=== PATIENT | female | born 1975 | race Caucasian/White ===

== ENCOUNTER 2017-05-16 20:54 | Emergency (ER) | payer OTHER ==
[2017-05-16 20:55] VITALS: BP 161/96; PULSE 108; RESP 16; TEMP 99.3; O2SAT 100
[2017-05-16 22:07] LABS: AUTOMATED NEUTROPHIL # 3.8 TH/MM3 (1.8-7.7); BASOPHIL # 0.1 TH/MM3 (0-0.2); BASOPHIL % 1.5 % (0.0-2.0); EOSINOPHIL # 0.2 TH/MM3 (0-0.4); EOSINOPHIL % 3.6 % (0.0-4.0); HEMO FLAGS DIFF FINAL; LYMPH % 23.5 % (9.0-44.0); LYMPHOCYTE # 1.4 TH/MM3 (1.0-4.8); MEAN CELL VOLUME 100.7 FL (80.0-100.0); MEAN CORPUSCULAR HEMOGLOBIN 35.4 PG (27.0-34.0); MEAN CORPUSCULAR HGB CONC 35.1 % (32.0-36.0); MONO % 7.4 % (0.0-8.0); PLATELET COUNT 254 TH/MM3 (150-450); RED BLOOD COUNT 3.57 MIL/MM3 (4.00-5.30); RED CELL DISTRIBUTION WIDTH 13.8 % (11.6-17.2)
[2017-05-16 22:33] LABS: ALT (GPT) 11 U/L (10-53); ANION GAP 4 MEQ/L (5-15); AST (GOT) 10 U/L (15-37); BICARBONATE 29.1 MEQ/L (21.0-32.0); BLOOD UREA NITROGEN 10 MG/DL (7-18); CHLORIDE 106 MEQ/L (98-107); GLOMERULAR FILTRATION RATE 85 ML/MIN (>89); POTASSIUM 4.3 MEQ/L (3.5-5.1); SODIUM (NA) 139 MEQ/L (136-145)
[2017-05-16 22:43] LABS: ALKALINE PHOSPHATASE 57 U/L (45-117); FREE T4 0.85 NG/DL (0.76-1.46); TOTAL BILIRUBIN ADULT 0.4 MG/DL (0.2-1.0)
[2017-05-16 22:45] LABS: CREATINE KINASE 89 U/L (26-192)
[2017-05-16] MEDS ORDERED: GABA300C5 PO (22:52)
[2017-05-16] MEDS ORDERED: ESZO2 PO (22:52)
[2017-05-16] MEDS ORDERED: SYNT25TA PO (22:52)
[2017-05-16 22:57] VITALS: BP 137/66; PULSE 89; RESP 16; O2SAT 100
--- NOTE | 2017-05-16 23:11 | PD ---
HPI Chief Complaint: Numbness/Tingling Time Seen by Provider: 23:07 Travel History International Travel<30 days: No Contact w/Intl Traveler<30days: No Traveled to known affect area: No History of Present Illness HPI patient diagnosed with hypothyroid and insomnia, recently moved here and has not found a pcp, so has NOT had her medications adjusted. now compliaints of fatigue, gen weakness but unable to sleep well. has noted hair falling out and brittle nails that crack easily. PFSH Past Medical History Anxiety: Yes Depression: Yes Diabetes: No Patient Takes Glucophage: No Diminished Hearing: No Endocrine: Yes (HYPO) Insomnia: Yes Immunizations Current: Yes Migraines: Yes Tetanus Vaccination: > 5 Years Influenza Vaccination: No ?: Not LMP: 05/09/17 : 2 Para: 1 Miscarriage: 1 Past Surgical History Surgical History: No Previous Surgery Social History Alcohol Use: No Tobacco Use: Yes (4 cigs a day) Substance Use: No Allergies-Medications (Allergen,Severity, Reaction): Coded Allergies: No Known Allergies (Unverified , 05/16/17) Reported Meds & Prescriptions Reported Meds & Active Scripts Active Ambien (Zolpidem Tartrate) 10 Mg Tab 10 Mg PO HS PRN Reported Lunesta (Eszopiclone) 2 Mg Tab 2 Mg PO HS PRN Gabapentin 300 Mg Cap 300 Mg PO TID Synthroid (Levothyroxine Sodium) 25 Mcg Tab 25 Mcg PO DAILY Review of Systems Except as stated in HPI: all other systems reviewed are Neg General / Constitutional: No: Fever Eyes: No: Visual changes HENT: No: Headaches Cardiovascular: No: Chest Pain or Discomfort Respiratory: No: Shortness of Breath Gastrointestinal: No: Abdominal Pain Genitourinary: No: Dysuria Musculoskeletal: No: Pain Skin: No Rash Neurologic: Positive: Weakness Psychiatric: No: Depression Endocrine: Positive: Cold Intolerance Hematologic/Lymphatic: No: Easy Bruising Physical Exam Narrative GENERAL: SKIN: Warm and dry. HEAD: Atraumatic. Normocephalic. EYES: Pupils equal and round. No scleral icterus. No injection or drainage. ENT: No nasal bleeding or discharge. Mucous membranes pink and moist. NECK: Trachea midline. No JVD. CARDIOVASCULAR: Regular rate and rhythm. RESPIRATORY: No accessory muscle use. Clear to auscultation. Breath sounds equal bilaterally. GASTROINTESTINAL: Abdomen soft, non-tender, nondistended. MUSCULOSKELETAL: Extremities without clubbing, cyanosis, or edema. No obvious deformities. NEUROLOGICAL: Awake and alert. No obvious cranial nerve deficits. Motor grossly within normal limits. Five out of 5 muscle strength in the arms and legs. Normal speech. PSYCHIATRIC: Appropriate mood and affect; insight and judgment normal. Data Data Last Documented VS Vital Signs Date Time Temp Pulse Resp B/P (MAP) Pulse Ox O2 Delivery O2 Flow Rate FiO2 05/17/17 00:09 05/16/17 22:57 89 16 100 Room Air 05/16/17 20:55 99.3 Orders Orders Complete Blood Count With Diff (05/16/17 21:09) Comprehensive Metabolic Panel (05/16/17 21:09) Creatine Kinase (Cpk) (05/16/17 21:09) Thyroid Stimulating Hormone (05/16/17 21:09) Free Thyroxine (T4) (05/16/17 21:09) Levothyroxine (Synthroid) (05/16/17 23:15) Ed Discharge Order (05/16/17 23:55) Labs Laboratory Tests Test 05/16/17 21:18 White Blood Count 6.0 TH/MM3 Red Blood Count 3.57 MIL/MM3 Hemoglobin 12.6 GM/DL Hematocrit 36.0 % Mean Corpuscular Volume 100.7 FL Mean Corpuscular Hemoglobin 35.4 PG Mean Corpuscular Hemoglobin Concent 35.1 % Red Cell Distribution Width 13.8 % Platelet Count 254 TH/MM3 Mean Platelet Volume 8.4 FL Neutrophils (%) (Auto) 64.0 % Lymphocytes (%) (Auto) 23.5 % Monocytes (%) (Auto) 7.4 % Eosinophils (%) (Auto) 3.6 % Basophils (%) (Auto) 1.5 % Neutrophils # (Auto) 3.8 TH/MM3 Lymphocytes # (Auto) 1.4 TH/MM3 Monocytes # (Auto) 0.4 TH/MM3 Eosinophils # (Auto) 0.2 TH/MM3 Basophils # (Auto) 0.1 TH/MM3 CBC Comment DIFF FINAL Differential Comment Blood Urea Nitrogen 10 MG/DL Creatinine 0.76 MG/DL Random Glucose 114 MG/DL Total Protein 8.0 GM/DL Albumin 4.3 GM/DL Calcium Level 9.2 MG/DL Alkaline Phosphatase 57 U/L Aspartate Amino Transf (AST/SGOT) 10 U/L Alanine Aminotransferase (ALT/SGPT) 11 U/L Total Bilirubin 0.4 MG/DL Sodium Level 139 MEQ/L Potassium Level 4.3 MEQ/L Chloride Level 106 MEQ/L Carbon Dioxide Level 29.1 MEQ/L Anion Gap 4 MEQ/L Estimat Glomerular Filtration Rate 85 ML/MIN Total Creatine Kinase 89 U/L Free Thyroxine 0.85 NG/DL Thyroid Stimulating Hormone 3rd Gen 10.200 uIU/ML MDM Medical Decision Making Medical Screen Exam Complete: Yes Emergency Medical Condition: Yes Medical Record Reviewed: Yes Differential Diagnosis hypothyroid v anemia v electorlyte abnl Narrative Course tsh screening test 10 which is c/w hypothyroid....CBC NL, METABOLIC PROFILE WNL. Diagnosis Primary Impression: symptomatic hypothyroidism Referrals: Ricardo Iqbal MD TO ESTABLISH PRIMARY CARE WITH Patient Instructions: General Instructions, Hypothyroidism (DC), Insomnia (ED) Scripts Zolpidem (Ambien) 10 Mg Tab 10 MG PO HS Y for INSOMNIA, #20 TAB 0 Refills Prov: August Hyde MD 05/16/17 Disposition: DISCHARGE HOME Condition: Stable August Hyde MD May 16, 2017 23:11
[2017-05-16] MEDS ORDERED: LEVOTHYROXINE SODIUM 200 MCG TAB PO ONE (23:15)
[2017-05-16] MEDS ORDERED: AMBI10TA PO (23:52)
== END 2017-05-17 00:08 | disposition home or self-care (01) ==
LOC: NEPD 20:54
DX: E03.9 Hypothyroidism, unspecified (principal); G47.00 Insomnia, unspecified; F17.210 Nicotine dependence, cigarettes, uncomplicated
CPT/HCPCS: 80053; 82550; 84439; 84443; 85025; 99283

== ENCOUNTER 2018-06-03 08:37 | Inpatient (IN) ==
[2018-06-03 10:50] LABS: Albumin 4.1 g/dL (3.4-5.0); Anion Gap 9 meq/L (5-15); Aspartate Aminotransferase 15 U/L (15-37); Blood Urea Nitrogen 11 mg/dL (7-18); Calcium 9.1 mg/dL (8.5-10.1); Carbon Dioxide 28.6 meq/L (21.0-32.0); Chloride 104 meq/L (98-107); Glomerular Filtration Rate 84 mL/min (>89); Glucose,Random 79 mg/dL (74-106); Magnesium 2.5 mg/dL (1.5-2.5); Potassium 3.6 meq/L (3.5-5.1); Sodium 142 meq/L (136-145)
[2018-06-03 10:52] LABS: Baso # (Auto) 0.1 th/mm3 (0.0-0.2); Baso % (Auto) 1.4 % (0.0-2.0); Eos # (Auto) 0.3 th/mm3 (0.0-0.4); Eos % (Auto) 4.7 % (0.0-4.0); Hematocrit 40.5 % (35.0-46.0); Hemoglobin 13.6 gm/dL (11.6-15.3); Lymph # (Auto) 1.5 th/mm3 (1.0-4.8); Lymph % (Auto) 20.6 % (9.0-44.0); Mean Corpuscular HGB Conc 33.5 % (32.0-36.0); Mean Corpuscular Hemoglobin 35.3 pg (27.0-34.0); Mean Corpuscular Volume 105.4 fL (80.0-100.0); Mean Platelet Volume 8.3 fL (7.0-11.0); Mono # (Auto) 0.7 th/mm3 (0.0-0.9); Mono % (Auto) 9.6 % (0.0-8.0); Neut # (Auto) 4.7 th/mm3 (1.8-7.7); Neut % (Auto) 63.7 % (16.0-70.0); Platelet Count 254 th/mm3 (150-450); Red Blood Count 3.85 mil/mm3 (4.00-5.30); White Blood Count 7.4 th/mm3 (4.0-11.0)
[2018-06-03 11:00] LABS: Alanine Aminotransferase 12 U/L (10-53); Alkaline Phosphatase 47 U/L (45-117); Total Protein 7.3 g/dL (6.4-8.2)
--- NOTE | 2018-06-03 11:13 | ED ---
HPI General Chief Complaint: Psychiatric Symptoms Stated Complaint: Psych eval Time Seen by Provider: 06/03/18 09:19 Source: patient and family Mode of arrival: ambulatory Limitations: no limitations History of Present Illness HPI Narrative: 42 yo F c/o suicidal ideation with plan. + hx suicide attempt by hanging. plan is to hang herself if discharged. + polysubstance abuse including IV drugs. no medical complaint. + IV drug abuse yesterday, opioids and cocaine. arrives with patient and reports any access to drugs will lead to abuse. Related Data Home Medications Medication Instructions Recorded Confirmed No Known Home Medications 06/03/18 06/03/18 Allergies Allergy/AdvReac Type Severity Reaction Status Date / Time codeine AdvReac Nausea/Vomi Verified 06/03/18 08:43 ting Review of Systems ROS: all other systems reviewed are negative [facility] Medical History Medical History Anxiety (Acute) Bipolar 1 disorder (Acute) Cervical cancer (Acute) Depression (Acute) Drug abuse (Acute) Uterine fibroid (Acute) Social History Social History Substance History: Active Abuse Second Hand Smoke Exposure: Yes Smoking Status: Current every day smoker Tobacco Type: Cigarettes How Often Do You Have a Drink Containing Alcohol: 2 to 4 times a month Recent Travel in [facility] within the Last 8 Weeks: No Recent Out of Country Travel within the Last 8 Weeks: No Substance Abuse Detail Heroin: Substance Use Status: Active Route Used Substance Abuse: Inhalation Substance Frequency: last night Reason for Use: Calm Down Crack/Cocaine: Substance Use Status: Active Route Used Substance Abuse: Inhalation Reason for Use: Calm Down Immunization History Tetanus Immunization: Unsure Exam Narrative Exam Narrative: GENERAL: 42 yo F, WNWD, sad affect, cooperative SKIN: Focused skin assessment warm/dry. HEAD: Atraumatic. Normocephalic. EYES: Pupils equal and round. No scleral icterus. No injection or drainage. ENT: No nasal bleeding or discharge. Mucous membranes pink and moist. NECK: Trachea midline. No JVD. CARDIOVASCULAR: Regular rate and rhythm. No murmur appreciated. RESPIRATORY: No accessory muscle use. Clear to auscultation. Breath sounds equal bilaterally. GASTROINTESTINAL: Abdomen soft, non-tender, nondistended. Hepatic and splenic margins not palpable. MUSCULOSKELETAL: No obvious deformities. No clubbing. No cyanosis. No edema. NEUROLOGICAL: Awake and alert. No obvious cranial nerve deficits. Motor grossly within normal limits. Normal speech. PSYCHIATRIC: + SI. No HI. Course Initial Documented Vital Signs Temperature 98.1 F 06/03/18 08:39 Pulse Rate 69 06/03/18 08:39 Respiratory Rate 18 06/03/18 08:39 Blood Pressure 133/61 06/03/18 08:39 Pulse Oximetry 100 06/03/18 08:39 Last Documented Vital Signs Temperature 98.1 F 06/03/18 08:39 Pulse Rate 69 06/03/18 08:39 Respiratory Rate 18 06/03/18 08:39 Blood Pressure 133/61 06/03/18 08:39 Pulse Oximetry 100 06/03/18 08:39 Medical Decision Making MDM Narrative Medical decision making narrative: Pt seen by HI Hernandez. OK for admission to inpatient psych. Pt is medically clear for admission. Pt is here voluntarily. Medical Screen Exam Complete: Yes Emergency Medical Condition: Yes Lab Data Result diagrams: 06/03/18 10:22 06/03/18 10:22 Lab Results 06/03/18 06/03/18 06/03/18 Range/Units 10:22 10:22 10:22 WBC 7.4 (4.0-11.0) th/mm3 RBC 3.85 L (4.00-5.30) mil/mm3 Hgb 13.6 (11.6-15.3) gm/dL Hct 40.5 (35.0-46.0) % MCV 105.4 H (80.0-100.0) fL MCH 35.3 H (27.0-34.0) pg MCHC 33.5 (32.0-36.0) % RDW 15.0 (11.6-17.2) % Plt Count 254 (150-450) th/mm3 MPV 8.3 (7.0-11.0) fL Neut % (Auto) 63.7 (16.0-70.0) % Lymph % (Auto) 20.6 (9.0-44.0) % [place] % (Auto) 9.6 H (0.0-8.0) % Eos % (Auto) 4.7 H (0.0-4.0) % Baso % (Auto) 1.4 (0.0-2.0) % Neut # (Auto) 4.7 (1.8-7.7) th/mm3 Lymph # (Auto) 1.5 (1.0-4.8) th/mm3 [place] # (Auto) 0.7 (0.0-0.9) th/mm3 Eos # (Auto) 0.3 (0.0-0.4) th/mm3 Baso # (Auto) 0.1 (0.0-0.2) th/mm3 WBC Differential . Differential Comment Auto diff final Sodium 142 (136-145) meq/L Potassium 3.6 (3.5-5.1) meq/L Chloride 104 (98-107) meq/L Carbon Dioxide 28.6 (21.0-32.0) meq/L Anion Gap 9 (5-15) meq/L BUN 11 (7-18) mg/dL Creatinine 0.76 (0.50-1.00) mg/dL Estimated GFR 84 L (>89) mL/min Random Glucose 79 (74-106) mg/dL Calcium 9.1 (8.5-10.1) mg/dL Magnesium 2.5 (1.5-2.5) mg/dL AST 15 (15-37) U/L Albumin 4.1 (3.4-5.0) g/dL Salicylates Less than 1.7 L (2.8-20.0) mg/dL Discharge Plan Discharge Order Discharge Orders: ED Use Only Admit Order (Routine); Ordered 06/03/18 Ordered By: Black Sanchez Physicians Team ED Provider: Black Sanchez Primary Care Provider: Primary Care Arelis Lopez Rxs /Orders / Referrals /Forms Prescriptions: No Action No Known Home Medications RF: 0 Status ED Status: With Doctor
[2018-06-03 11:16] LABS: Amphetamine Screen,Urine Neg (Neg); Barbiturate Screen,Urine Neg (Neg); Cannabinoid Screen,Urine Pos (Neg); Cocaine Screen,Urine Pos (Neg)
[2018-06-03 11:19] LABS: Opiate Screen,Urine Pos (Neg)
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
[2018-06-03] MEDS ORDERED: Aluminum/Magnesium/Simethacone Susp 30 ML UDC PO PRN (11:54)
[2018-06-03] MEDS ORDERED: Acetaminophen 325 MG Tablet PO PRN (11:54)
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
[2018-06-03] MEDS ORDERED: Loperamide 2 MG Capsule PO PRN (16:46)
[2018-06-03] MEDS: Methocarbamol 500 MG Tablet PO SCH ×2 (17:33→21:03)
[2018-06-03] MEDS: QUEtiapine 100 MG Tablet PO SCH (21:03)
[2018-06-03] MEDS: Senna/Docusate Sodium 8.6/50 MG Tablet PO SCH (21:04)
[2018-06-04] MEDS: Methocarbamol 500 MG Tablet PO SCH ×3 (05:01→21:23)
[2018-06-04 10:19] LABS: Chol/HDL Ratio 3.23 Ratio; Thyroid Stimulating Hormone 1.1 uIU/mL (0.358-3.740)
[2018-06-04] MEDS: Senna/Docusate Sodium 8.6/50 MG Tablet PO SCH ×2 (10:55→21:23)
[2018-06-04] MEDS ORDERED: QUEtiapine 100 MG Tablet PO ONE (11:00)
[2018-06-04] MEDS ORDERED: LORazepam 1 MG Tablet PO PRN (12:19)
[2018-06-04] MEDS ORDERED: Haloperidol Inj 5 MG/ML Ampul IM PRN (12:19)
[2018-06-04 12:27] LABS: Hemoglobin A1c 5.5 % (4.3-6.0)
--- NOTE | 2018-06-04 12:51 | P.PNPSY ---
Subjective Chief Complaint: Suicide plan to hang herself Remarks: Reviewed electronic medical records and discussed case with staff. Follow-up was conducted in the patient's room with CHANNING Simpson present. Patient was found lying in the bed. She is awake and alert. Her nurse reports she has been operative and compliant with her care. Patient states "I do not feel so good". She states that she feels she is going through withdrawal symptoms. She requests that she would like to go to rehab. Per Dr. Aviles's note from yesterday she is being presented to the [facility] for possible transfer to receive dual diagnosis treatment. The patient relates that she obtains Xanax off the street and uses it nightly. Therefore, I have added a CIWA protocol as well as increasing her Robaxin to 1000 mg every 8 hours. Mental Status Examination Appearance: Appropriate (The above mental status examination was done June 03, 2018 at approximately 9 AM.) Consciousness: Alert Orientation: x4 Motor Activity: Normal gait Speech: Unremarkable Language: Adequate Fund of Knowledge: Adequate Attention and Concentration: Adequate Memory: Unremarkable Mood: Sad Affect: Flat, Labile Thought Process & Associations: Intact Thought Content: Appropriate Hallucination Type: None Delusion Type: None Suicidal Ideation: Yes Suicidal Plan: Yes (pa) Suicidal Intention: Yes Homicidal Ideation: No Homicidal Plan: No Homicidal Intention: No Insight: Fair Judgment: Impulsive Assessment and Plan - Assessment (1) Suicidal ideation Code(s): R45.851 - Suicidal ideations Status: Acute (2) Opiate abuse, continuous Code(s): F11.10 - Opioid abuse, uncomplicated Status: Acute (3) PTSD (post-traumatic stress disorder) Code(s): F43.10 - Post-traumatic stress disorder, unspecified Status: Acute - Plan Plan: Patient will be reevaluated by the attending psychiatrist. Continue with current treatment plan. Patient is being presented to the [facility] for possible transfer to receive dual diagnosis treatment. A CIWA protocol was ordered to manage possible benzodiazepine withdrawal and her Robaxin was increased to 1000 mg every 8 hours. Justification for Continued Inpatient Stay: Moving this patient to a less restrictive environment would likely result in decompensation.
--- NOTE | 2018-06-04 13:28 | P.DIET ---
Nutritional Evaluation Type of nutrition evaluation: initial Nutrition screening: Weight Loss > 10 lbs Subjective Subjective Comments: Weight loss of 45# over the past 6 months reported. Pt ate 50% of her lunch today. Objective - Diagnosis SI, Polysubstance Abuse - Objective % IBW: 77 (IBW = 150#) Body Weight Used for Calculations: Actual (52.4 kg) Energy Needs - Lower Range (kCal/kg): 30 Energy Needs - Upper Range (kCal/kg): 35 Lower Limit kCal/kg (kCals): 1,572 Upper Limit kCal/kg (kCals): 1,834 Lower Limit Protein Factor (Grams per Kg): 1.2 Upper Limit Protein Factor (Grams per Kg): 1.5 Lower Protein Needs (Protein): 63 Upper Protein Needs (Protein): 79 Fluid Factor (ml/kg): 35 Estimated Fluid Needs (ml): 1,834 Dietitian Reviewed in Medical Record: Current diet, Curent medications, Intake & Output, Labs, Medical history Diet Order: Regular Assessment Assessment: Pt is at high nutrition risk 2' to significant unintentional weight loss with a BMI of 16.6. Po intake is fair at this time. Will send Ensure Enlive on trays and monitor acceptance. Each 8 oz serving provides 350 kcals and [address]. Recommendations: Continue Regular diet Ensure Enlive tid Dietitian to Monitor: Lab values, Supplement acceptance, Intake & Output, Diet tolerance, Weight change, PO Intake, Medical course
[2018-06-04] MEDS: QUEtiapine 100 MG Tablet PO SCH (21:23)
[2018-06-05] MEDS: Methocarbamol 500 MG Tablet PO SCH (06:25)
[2018-06-05] MEDS: Senna/Docusate Sodium 8.6/50 MG Tablet PO SCH (08:36)
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
== END 2018-06-05 12:45 | disposition short-term general hospital (02) | DRG 882 ==
LOC: NEPD 08:37 → NEDA 11:10 → H260 12:41
PROVIDERS: ADMIT Psychiatry & Neurology Child & Adolescent Psychiatry; ATTEND Psychiatry & Neurology Child & Adolescent Psychiatry